=== PATIENT | female | born 1950 | race Caucasian/White ===

== ENCOUNTER 2021-04-08 16:03 | Emergency (ER) | payer MEDICARE ==
[2021-04-08 16:12] VITALS: TEMP 97.8
[2021-04-08] MEDS ORDERED: SODIUM CHLORIDE 0.9% 1,000 ML IV STA (16:21)
--- NOTE | 2021-04-08 16:25 | ED ---
General Adult HPI - General Chief complaint: Syncope Stated complaint: Near syncope Time Seen by Provider: 04/08/21 16:10 Source: patient, EMS, RN notes reviewed Mode of arrival: EMS Limitations: no limitations - History of Present Illness Initial comments: Patient is a pleasant 70-year-old female presenting to the emergency department for a near-syncopal episode. Patient states she was bending over and felt like she is about to pass out when she stood up. Patient states she did feel lightheaded for several minutes following this. Patient no longer has symptoms and is symptom-free. Patient denies ever losing consciousness. No chest pain or dyspnea. Patient denies chest pain despite being questioned on this several times and no defining patient that the nurse Hansen chest pain. Despite this patient still denies any chest discomfort at any time. No weakness or headache or confusion. No abdominal pain. patient takes aspirin daily for her history of atrial fibrillation. Patient states she recently lost her and has not been eating or drinking well. - Related Data Home Medications Medication Instructions Recorded Confirmed Aspirin EC [Ecotrin Low Dose] 81 mg PO HS 04/08/21 04/08/21 Allergies Allergy/AdvReac Type Severity Reaction Status Date / Time No Known Allergies Allergy Verified 04/08/21 18:07 Review of Systems ROS Statement: Those systems with pertinent positive or pertinent negative responses have been documented in the HPI. ROS Other: All systems not noted in ROS Statement are negative. Constitutional: Denies: fever Eyes: Denies: eye pain ENT: Denies: ear pain Respiratory: Denies: cough, dyspnea Cardiovascular: Denies: chest pain, palpitations Endocrine: Denies: fatigue Gastrointestinal: Denies: abdominal pain Genitourinary: Denies: dysuria Musculoskeletal: Denies: back pain Skin: Denies: rash Neurological: Denies: headache, weakness, confusion Past Medical History Additional Past Medical History / Comment(s): prolaplsed valve (since childhood) History of Any Multi-Drug Resistant Organisms: None Reported Past Surgical History: Section Smoking Status: Current some day smoker Past Alcohol Use History: None Reported Past Drug Use History: None Reported General Exam Limitations: no limitations General appearance: alert, in no apparent distress Head exam: Present: atraumatic, normocephalic Eye exam: Present: normal appearance, PERRL, EOMI. Absent: nystagmus ENT exam: Present: normal oropharynx Respiratory exam: Present: normal lung sounds bilaterally Cardiovascular Exam: Present: irregular rhythm Expanded Peripheral pulses: 2+: Radial (R), Radial (L), Posterior Tibialis (R), Posterior Tibialis (L), Dorsalis Pedis (R), Dorsalis Pedis (L) GI/Abdominal exam: Present: soft. Absent: distended, tenderness, pulsatile mass Extremities exam: Present: normal inspection. Absent: pedal edema, calf tenderness Neurological exam: Present: alert, oriented X3, CN II-XII intact. 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 fib with rate of 94. QRS 104. QT 344. QTC 4:30. Normal axis normal QRS. Nonspecific ST-T. Medical Decision Making - Medical Decision Making Patient reevaluated and updated. Patient requests discharge home. Patient has borderline blood pressure and is receptive to receiving Ativan. Patient amiss to feeling anxious or patient states she will follow-up with primary care physician - Lab Data Result diagrams: 04/08/21 17:35 04/08/21 16:31 Lab Results 04/08/21 04/08/21 04/08/21 Range/Units 16:31 16:31 16:31 WBC (3.8-10.6) k/uL RBC (3.80-5.40) m/uL Hgb (11.4-16.0) gm/dL Hct (34.0-46.0) % MCV (80.0-100.0) fL MCH (25.0-35.0) pg MCHC (31.0-37.0) g/dL RDW (11.5-15.5) % Plt Count (150-450) k/uL MPV Neutrophils % % Lymphocytes % % Monocytes % % Eosinophils % % Basophils % % Neutrophils # (1.3-7.7) k/uL Lymphocytes # (1.0-4.8) k/uL Monocytes # (0-1.0) k/uL Eosinophils # (0-0.7) k/uL Basophils # (0-0.2) k/uL Manual Slide Review Large Platelets RBC Morphology PT (9.0-12.0) sec INR (<1.2) APTT (22.0-30.0) sec Sodium 139 (137-145) mmol/L Potassium 5.1 (3.5-5.1) mmol/L Chloride 112 H (98-107) mmol/L Carbon Dioxide 19 L (22-30) mmol/L Anion Gap 8 mmol/L BUN 11 (7-17) mg/dL Creatinine 0.54 (0.52-1.04) mg/dL Est GFR (CKD-EPI)AfAm >90 (>60 ml/min/1.73 sqM) Est GFR (CKD-EPI)NonAf >90 (>60 ml/min/1.73 sqM) Glucose 97 (74-99) mg/dL Calcium 9.4 (8.4-10.2) mg/dL Magnesium 2.2 (1.6-2.3) mg/dL Total Bilirubin 1.0 (0.2-1.3) mg/dL AST 88 H (14-36) U/L ALT 47 H (4-34) U/L Alkaline Phosphatase 72 (38-126) U/L Troponin I 0.015 (0.000-0.034) ng/mL Total Protein 7.2 (6.3-8.2) g/dL Albumin 4.3 (3.5-5.0) g/dL Urine Color Light Yellow Urine Appearance Clear (Clear) Urine pH 5.0 (5.0-8.0) Ur Specific [place] 1.005 (1.001-1.035) Urine Protein Negative (Negative) Urine Glucose (UA) Negative (Negative) Urine Ketones Negative (Negative) Urine Blood Negative (Negative) Urine Nitrite Negative (Negative) Urine Bilirubin Negative (Negative) Urine Urobilinogen <2.0 (<2.0) mg/dL Ur Leukocyte Esterase Negative (Negative) 04/08/21 04/08/21 Range/Units 17:35 17:35 WBC 5.9 (3.8-10.6) k/uL RBC 4.72 (3.80-5.40) m/uL Hgb 14.9 (11.4-16.0) gm/dL Hct 45.8 (34.0-46.0) % MCV 96.9 (80.0-100.0) fL MCH 31.6 (25.0-35.0) pg MCHC 32.6 (31.0-37.0) g/dL RDW 13.7 (11.5-15.5) % Plt Count 139 L (150-450) k/uL MPV 12.2 Neutrophils % 67 % Lymphocytes % 23 % Monocytes % 7 % Eosinophils % 1 % Basophils % 0 % Neutrophils # 3.9 (1.3-7.7) k/uL Lymphocytes # 1.3 (1.0-4.8) k/uL Monocytes # 0.4 (0-1.0) k/uL Eosinophils # 0.1 (0-0.7) k/uL Basophils # 0.0 (0-0.2) k/uL Manual Slide Review Performed Large Platelets Present RBC Morphology Normal PT 11.0 (9.0-12.0) sec INR 1.0 (<1.2) APTT 21.7 L (22.0-30.0) sec Sodium (137-145) mmol/L Potassium (3.5-5.1) mmol/L Chloride (98-107) mmol/L Carbon Dioxide (22-30) mmol/L Anion Gap mmol/L BUN (7-17) mg/dL Creatinine (0.52-1.04) mg/dL Est GFR (CKD-EPI)AfAm (>60 ml/min/1.73 sqM) Est GFR (CKD-EPI)NonAf (>60 ml/min/1.73 sqM) Glucose (74-99) mg/dL Calcium (8.4-10.2) mg/dL Magnesium (1.6-2.3) mg/dL Total Bilirubin (0.2-1.3) mg/dL AST (14-36) U/L ALT (4-34) U/L Alkaline Phosphatase (38-126) U/L Troponin I (0.000-0.034) ng/mL Total Protein (6.3-8.2) g/dL Albumin (3.5-5.0) g/dL Urine Color Urine Appearance (Clear) Urine pH (5.0-8.0) Ur Specific [place] (1.001-1.035) Urine Protein (Negative) Urine Glucose (UA) (Negative) Urine Ketones (Negative) Urine Blood (Negative) Urine Nitrite (Negative) Urine Bilirubin (Negative) Urine Urobilinogen (<2.0) mg/dL Ur Leukocyte Esterase (Negative) Disposition Clinical Impression: Near syncope Disposition: HOME SELF-CARE Condition: Stable Instructions (If sedation given, give patient instructions): Near Syncope (ED), Hypertension (ED) Additional Instructions: Please follow-up with primary care physician in the next day or 2 for recheck. Return for passing out, chest pain or shortness of breath, weakness, uncontrolled blood pressure, worsening symptoms or other concerns. Is patient prescribed a controlled substance at d/c from ED?: No Referrals: Luis Fernando Biswas MD [STAFF PHYSICIAN] - 1-2 days Time of Disposition: 19:39
[2021-04-08 17:00] LABS: ALT 47 U/L (4-34); AST 88 U/L (14-36); African American GFR (CKD) >90 (>60 ml/min/1.73 sqM); Albumin 4.3 g/dL (3.5-5.0); Alkaline Phosphatase 72 U/L (38-126); Anion Gap 8 mmol/L; Blood Urea Nitrogen 11 mg/dL (7-17); Calcium 9.4 mg/dL (8.4-10.2); Carbon Dioxide 19 mmol/L (22-30); Chloride 112 mmol/L (98-107); Glucose 97 mg/dL (74-99); Magnesium 2.2 mg/dL (1.6-2.3); Non-African American GFR(CKD) >90 (>60 ml/min/1.73 sqM); Sodium 139 mmol/L (137-145); Total Protein 7.2 g/dL (6.3-8.2)
[2021-04-08 17:03] LABS: Potassium 5.1 mmol/L (3.5-5.1)
[2021-04-08 17:32] LABS: Appearance,Urine Clear (Clear); Bilirubin,Urine Negative (Negative); Blood,Urine Negative (Negative); Color,Urine Light Yellow; Glucose,Urine (UA) Negative (Negative); Ketones,Urine Negative (Negative); Leukocyte Esterase,Urine Negative (Negative); Nitrite,Urine Negative (Negative); Protein,Urine Negative (Negative); Specific Gravity,Urine 1.005 (1.001-1.035); Urobilinogen,Urine <2.0 mg/dL (<2.0)
--- NOTE | 2021-04-08 17:32 | XR ---
EXAMINATION TYPE: XR chest 2V DATE OF EXAM: 04/08/2021 COMPARISON: NONE HISTORY: Dizziness TECHNIQUE: 2 views FINDINGS: There is no heart failure nor confluent pneumonic infiltrate. Costophrenic angles are clear . There are no hilar masses. Heart is borderline enlarged. Bony thorax is intact. IMPRESSION: No active cardiopulmonary disease.
[2021-04-08 18:15] LABS: Basophils % (A) 0 %; Eosinophils # (A) 0.1 k/uL (0-0.7); Eosinophils % (A) 1 %; HCT 45.8 % (34.0-46.0); HGB 14.9 gm/dL (11.4-16.0); Lymphocytes # (A) 1.3 k/uL (1.0-4.8); Lymphocytes % (A) 23 %; MCH 31.6 pg (25.0-35.0); MCHC 32.6 g/dL (31.0-37.0); MCV 96.9 fL (80.0-100.0); Mean Platelet Volume 12.2; Monocytes # (A) 0.4 k/uL (0-1.0); Monocytes % (A) 7 %; Neutrophils # (A) 3.9 k/uL (1.3-7.7); Neutrophils % (A) 67 %; Platelet Count 139 k/uL (150-450); RBC 4.72 m/uL (3.80-5.40); RDW 13.7 % (11.5-15.5); WBC 5.9 k/uL (3.8-10.6)
[2021-04-08 18:25] LABS: Partial Thromboplastin Time 21.7 sec (22.0-30.0)
[2021-04-08] MEDS ORDERED: LORazepam 1 MG TAB PO STA ×2 (18:34→19:37)
[2021-04-08 18:55] LABS: Large Platelets Present
[2021-04-08 19:57] VITALS: BP 142/93; PULSE 89; RESP 16
== END 2021-04-08 19:57 | disposition home or self-care (01) ==
LOC: EC 16:03
DX: R55 Syncope and collapse (principal); R42 Dizziness and giddiness; F17.200 Nicotine dependence, unspecified, uncomplicated; Z79.82 Long term (current) use of aspirin
CPT/HCPCS: 36415; 71046; 80053; 81003; 83735; 84484; 85025; 85610; 85730; 93005; 99284

== ENCOUNTER 2022-09-09 10:52 | Emergency (ER) | payer MEDICARE ==
[2022-09-09 11:43] LABS: Basophils % (A) 1 %; Eosinophils # (A) 0.1 k/uL (0-0.7); Eosinophils % (A) 1 %; HCT 44.6 % (34.0-46.0); HGB 14.5 gm/dL (11.4-16.0); Lymphocytes # (A) 1.4 k/uL (1.0-4.8); Lymphocytes % (A) 26 %; MCH 30.9 pg (25.0-35.0); MCHC 32.4 g/dL (31.0-37.0); MCV 95.1 fL (80.0-100.0); Mean Platelet Volume 11.3; Monocytes # (A) 0.5 k/uL (0-1.0); Monocytes % (A) 10 %; Neutrophils # (A) 3.2 k/uL (1.3-7.7); Neutrophils % (A) 61 %; Platelet Count 170 k/uL (150-450); RBC 4.69 m/uL (3.80-5.40); WBC 5.2 k/uL (3.8-10.6)
[2022-09-09 12:00] LABS: ALT 29 U/L (4-34); AST 47 U/L (14-36); African American GFR (CKD) >90 (>60 ml/min/1.73 sqM); Albumin 4.1 g/dL (3.5-5.0); Alkaline Phosphatase 91 U/L (38-126); Anion Gap 6 mmol/L; Blood Urea Nitrogen 8 mg/dL (7-17); Calcium 8.8 mg/dL (8.4-10.2); Carbon Dioxide 24 mmol/L (22-30); Chloride 112 mmol/L (98-107); Glucose 101 mg/dL (74-99); Lipase 101 U/L (23-300); Non-African American GFR(CKD) >90 (>60 ml/min/1.73 sqM); Potassium 4.3 mmol/L (3.5-5.1); Sodium 142 mmol/L (137-145); Total Bilirubin 0.7 mg/dL (0.2-1.3); Total Protein 7.1 g/dL (6.3-8.2)
--- NOTE | 2022-09-09 12:46 | XR ---
EXAMINATION TYPE: XR ankle complete RT DATE OF EXAM: 09/09/2022 COMPARISON: NONE HISTORY: Fall, pain TECHNIQUE: Frontal, lateral and oblique images of the right ankle are obtained. COMPARISON: None. FINDINGS: There is no acute fracture/dislocation evident. The joint spaces appear within normal solo its. Mild soft tissue edema of the ankle. Moderate size plantar calcaneal enthesophyte. Kager's fat p ad is intact. IMPRESSION: 1. There is no acute fracture or dislocation seen. 2. Mild soft tissue edema of the ankle.
--- NOTE | 2022-09-09 12:47 | XR ---
EXAMINATION TYPE: PA chest and right rib series, 5 views DATE OF EXAM: 09/09/2022 COMPARISON: 04/08/2021 HISTORY: 72-year-old female pain after fall 2 weeks ago FINDINGS: Heart mildly enlarged. Aorta and pulmonary vasculature within normal limits. Mild interstitial promin ence in the chronic appearance. No consolidation, pneumothorax, or pleural effusion. Subtle step off involving the anterior right sixth and seventh ribs on the oblique views. IMPRESSION: 1. Correlate for point tenderness. Possible subtle fractures of the right anterior sixth and seventh ribs on the oblique views. 2. Mild cardiomegaly and chronic changes. No acute cardiopulmonary process.
--- NOTE | 2022-09-09 13:41 | US ---
EXAMINATION TYPE: US abdomen limited DATE OF EXAM: 09/09/2022 COMPARISON: NONE CLINICAL HISTORY: ruq. Pain. TECHNIQUE: Multiple sonographic images of the right upper quadrant are obtained. FINDINGS: EXAM MEASUREMENTS: Liver Length: 15.0 cm Gallbladder Wall: 0.19 cm CBD: 0.48 cm Right Kidney: 11.3 x 5.4 x 5.7 cm TEACHER OF THE DEAF/HARD OF HEARING NOTES: Exam is very limited due to overlying bowel gas. Pancreas: Obscured Liver: Appears very heterogeneous with increased attenuation. No focal lesion. Gallbladder: Fold seen. No pericholecystic fluid, wall thickening or shadowing calculi. Evidence for sonographic Christianson's sign: No CBD: Portions seen appear wnl Right Kidney: Limited. No hydronephrosis or masses seen . No shadowing calculi. IMPRESSION: 1. Limited examination without evidence for acute process. 2. Heterogenous slightly hyperechoic liver echotexture which is most commonly seen with hepatic stea tosis.
--- NOTE | 2022-09-09 14:10 | ED ---
Abdominal Pain HPI - General Chief Complaint: Abdominal Pain Stated Complaint: Fall 2wks ago,Rib & Ankle Pain Time Seen by Provider: 09/09/22 11:20 Source: patient Mode of arrival: ambulatory Limitations: no limitations - History of Present Illness Initial Comments: 72-year-old female presents to the emergency department with reported right upper quadrant abdominal pain. States that last night she began having some intense right upper quadrant abdominal pain around 3 AM. Denies any provocative or palliative factors. Pain has essentially resolved at this time with a little bit of minimal discomfort. She denies nausea or vomiting. No diarrhea, consultation, black or bloody stools. No changes in her urination. Denies flank pain. No fevers. Does report to some trauma. States that she fell down a full flight of stairs approximately 2 weeks ago. She went into the clinic for evaluation however never had any imaging performed. She denies shortness of breath. No cough. No chest pain. Other alleviating, precipitating modified factors - Related Data Home Medications Medication Instructions Recorded Confirmed No Known Home Medications 09/09/22 09/09/22 Allergies Allergy/AdvReac Type Severity Reaction Status Date / Time No Known Allergies Allergy Verified 09/09/22 11:55 Review of Systems ROS Statement: Those systems with pertinent positive or pertinent negative responses have been documented in the HPI. ROS Other: All systems not noted in ROS Statement are negative. Past Medical History Additional Past Medical History / Comment(s): prolaplsed valve (since childhood) History of Any Multi-Drug Resistant Organisms: None Reported Past Surgical History: Section Smoking Status: Current every day smoker Past Alcohol Use History: None Reported Past Drug Use History: None Reported General Exam Limitations: no limitations General appearance: alert, in no apparent distress Head exam: Present: atraumatic, normocephalic, normal inspection Eye exam: Present: normal appearance, PERRL, EOMI. Absent: scleral icterus, conjunctival injection, periorbital swelling ENT exam: Present: normal exam, mucous membranes moist Neck exam: Present: normal inspection. Absent: tenderness, meningismus, lymphadenopathy Respiratory exam: Present: normal lung sounds bilaterally, chest wall tenderness (right anterior, lower chest wall). Absent: respiratory distress, wheezes, rales, rhonchi, stridor Cardiovascular Exam: Present: regular rate, normal rhythm, normal heart sounds. Absent: systolic murmur, diastolic murmur, rubs, gallop, clicks GI/Abdominal exam: Present: soft, normal bowel sounds. Absent: distended, tenderness, guarding, rebound, rigid Extremities exam: Present: normal inspection, full ROM, normal capillary refill. Absent: tenderness, pedal edema, joint swelling, calf tenderness Back exam: Present: normal inspection Neurological exam: Present: alert, oriented X3, CN II-XII intact Psychiatric exam: Present: normal affect, normal mood Skin exam: Present: warm, dry, intact, normal color. Absent: rash Course Vital Signs 09/09/22 09/09/22 11:13 14:16 Temperature 97.7 F 98.7 F Pulse Rate 54 L 68 Respiratory 18 16 Rate Blood Pressure 153/109 136/96 O2 Sat by Pulse 96 96 Oximetry Medical Decision Making - Medical Decision Making Upon arrival patient was placed into room 20. There are history and physical exam is performed. IV is established and laboratory studies are conducted. Patient essentially pain free at this time. X-ray of the right ribs, right ankle and an ultrasound of the right upper quadrant performed. Return of the results are discussed with the patient. She does have rib fractures on the righ t anterior rib cage of ribs 6 and 7. I did discuss treatment with Motrin and Tylenol. Rest, ice and elevate her ankle. Follow up with her primary care physician or orthopedic surgeon if she has continued right ankle pain. Patient understood and was agreeable. Return for any new or worsening symptoms. Patient was discharged home in stable condition - Lab Data Result diagrams: 09/09/22 11:30 09/09/22 11:30 Lab Results 09/09/22 09/09/22 Range/Units 11:30 11:30 WBC 5.2 (3.8-10.6) k/uL RBC 4.69 (3.80-5.40) m/uL Hgb 14.5 (11.4-16.0) gm/dL Hct 44.6 (34.0-46.0) % MCV 95.1 (80.0-100.0) fL MCH 30.9 (25.0-35.0) pg MCHC 32.4 (31.0-37.0) g/dL RDW 14.0 (11.5-15.5) % Plt Count 170 (150-450) k/uL MPV 11.3 Neutrophils % 61 % Lymphocytes % 26 % Monocytes % 10 % Eosinophils % 1 % Basophils % 1 % Neutrophils # 3.2 (1.3-7.7) k/uL Lymphocytes # 1.4 (1.0-4.8) k/uL Monocytes # 0.5 (0-1.0) k/uL Eosinophils # 0.1 (0-0.7) k/uL Basophils # 0.0 (0-0.2) k/uL Sodium 142 (137-145) mmol/L Potassium 4.3 (3.5-5.1) mmol/L Chloride 112 H (98-107) mmol/L Carbon Dioxide 24 (22-30) mmol/L Anion Gap 6 mmol/L BUN 8 (7-17) mg/dL Creatinine 0.52 (0.52-1.04) mg/dL Est GFR (CKD-EPI)AfAm >90 (>60 ml/min/1.73 sqM) Est GFR (CKD-EPI)NonAf >90 (>60 ml/min/1.73 sqM) Glucose 101 H (74-99) mg/dL Calcium 8.8 (8.4-10.2) mg/dL Total Bilirubin 0.7 (0.2-1.3) mg/dL AST 47 H (14-36) U/L ALT 29 (4-34) U/L Alkaline Phosphatase 91 (38-126) U/L Total Protein 7.1 (6.3-8.2) g/dL Albumin 4.1 (3.5-5.0) g/dL Lipase 101 (23-300) U/L Disposition Clinical Impression: Fall, Rib fractures, RUQ pain Disposition: HOME SELF-CARE Condition: Stable Instructions (If sedation given, give patient instructions): Rib Fracture (ED) Additional Instructions: Take Motrin and Tylenol as needed for pain. Rest, ice and elevate your ankle. If you have continued swelling in a few weeks then you need an MRI. Return for any new or worsening symptoms Is patient prescribed a controlled substance at d/c from ED?: No Referrals: None,Stated [Primary Care Provider] - 1-2 days Tee Soto DO [Doctor of Osteopathic Medicine] - 1-2 days Time of Disposition: 14:09
[2022-09-09 14:24] VITALS: BP 136/96; PULSE 68; RESP 16; TEMP 98.7
== END 2022-09-09 14:24 | disposition home or self-care (01) ==
LOC: EC 10:52
DX: S22.31XA Fracture of one rib, right side, initial encounter for closed fracture (principal); R10.11 Right upper quadrant pain; F17.200 Nicotine dependence, unspecified, uncomplicated; W10.9XXA Fall (on) (from) unspecified stairs and steps, initial encounter
CPT/HCPCS: 36415; 76705; 80053; 83690; 85025; 99284

== ENCOUNTER 2022-12-23 12:33 | Observation (INO) | payer MEDICARE ==
[2022-12-23] MEDS ORDERED: KETOROLAC 15 MG/ML 1 ML VIAL IVP STA (12:39)
[2022-12-23] MEDS ORDERED: SODIUM CHLORIDE 0.9% 1,000 ML IV STA (12:39)
[2022-12-23] MEDS ORDERED: FAMOTIDINE 20 MG/2 ML VIAL IV STA (12:40)
--- NOTE | 2022-12-23 12:45 | ED ---
General Adult HPI - General Stated complaint: Abd pain Time Seen by Provider: 12/23/22 12:35 Source: patient, EMS, RN notes reviewed Mode of arrival: EMS Limitations: no limitations - History of Present Illness Initial comments: Patient is a pleasant 72-year-old female presenting to the emergency department with concerns with right sided flank pain. Onset of symptoms was around an hour ago. Fairly sudden onset. Patient did have some nausea however that near resolved with medication by EMS. EMS also provided 6 of morphine with only mild improvement of symptoms. Patient states discomfort starts right posterior flank and does extend anterior, more lower. No urinary symptoms. No constipation or diarrhea. No history of similar symptoms previously. - Related Data Home Medications Medication Instructions Recorded Confirmed Aspirin EC [Ecotrin Low Dose] 81 mg PO HS 12/23/22 12/23/22 Allergies Allergy/AdvReac Type Severity Reaction Status Date / Time No Known Allergies Allergy Verified 12/23/22 13:10 Review of Systems ROS Statement: Those systems with pertinent positive or pertinent negative responses have been documented in the HPI. ROS Other: All systems not noted in ROS Statement are negative. Constitutional: Denies: fever Eyes: Denies: eye pain ENT: Denies: ear pain Respiratory: Denies: cough Cardiovascular: Denies: chest pain Endocrine: Denies: fatigue Gastrointestinal: Reports: as per HPI, abdominal pain, nausea Genitourinary: Denies: urgency, dysuria, frequency, hematuria Musculoskeletal: Reports: as per HPI Skin: Denies: rash Neurological: Denies: weakness Past Medical History Additional Past Medical History / Comment(s): prolaplsed valve (since childhood) History of Any Multi-Drug Resistant Organisms: None Reported Past Surgical History: Section Smoking Status: Current every day smoker Past Alcohol Use History: None Reported Past Drug Use History: None Reported General Exam Limitations: no limitations General appearance: alert Head exam: Present: normocephalic Eye exam: Present: normal appearance Neck exam: Present: normal inspection Respiratory exam: Present: normal lung sounds bilaterally Cardiovascular Exam: Present: tachycardia Expanded Peripheral pulses: 2+: Dorsalis Pedis (R), Dorsalis Pedis (L) GI/Abdominal exam: Present: soft, tenderness (Moderate tenderness, more right- sided and more lower), normal bowel sounds. Absent: distended, guarding, rebound, rigid, pulsatile mass Extremities exam: Present: normal inspection. Absent: pedal edema, calf tenderness Back exam: Present: CVA tenderness (R) (Just below the right CVA) Neurological exam: Present: alert Psychiatric exam: Present: normal affect, normal mood Skin exam: Present: normal color Course Vital Signs 12/23/22 12/23/22 12/23/22 13:32 15:04 15:58 Pulse Rate 110 H 97 82 Respiratory 16 16 16 Rate Blood Pressure 153/114 162/95 162/112 O2 Sat by Pulse 95 97 97 Oximetry - Reevaluation(s) Reevaluation #1: 12/23/22 13:10 Patient reevaluated and feeling much better. Patient unclear if she has history of atrial fibrillation however states she does have history of valve problem and questionable history of previous rhythm disorder since childhood. Patient states she takes aspirin daily. 12/23/22 16:36 Chemistry still pending. Lab has been called however still pending EKG Findings - EKG Results: EKG: interpreted by ERMD (LVH criteria with repolarization change), normal axis EKG shows: tachycardia, atrial fibrillation Medical Decision Making - Medical Decision Making Was pt. sent in by a medical professional or institution (, PA, SPECIAL SERVICES COORDINATOR, urgent care, hospital, or [facility]...) When possible be specific @ -No Did you speak to anyone other than the patient for history (EMS, parent, family, police, friend...)? What history was obtained from this source @ -No Did you review nursing and triage notes (agree or disagree)? Why? @ -I reviewed and agree with nursing and triage notes Were old charts reviewed (outside hosp., previous admission, EMS record, old EKG, old radiological studies, urgent care reports/EKG's, [facility] records)? Report findings @ -No old charts were reviewed Differential Diagnosis (chest pain, altered mental status, abdominal pain women, abdominal pain men, vaginal bleeding, weakness, fever, dyspnea, syncope, headache, dizziness, GI bleed, back pain, seizure, CVA, palpatations, mental health)? @ -Differential Abdominal Pain Women: Appendicitis, Cholecystitis, diverticulosis, ischemic bowel, pancreatitis, hepa titis, UTI, gastroenteritis, AAA, incarcerated hernia, bowel obstruction, constipation, inflammatory bowel, hepatitis, peptic ulcer disease, splenic infarction, perforated viscus, vulvitis, ovarian torsion, PID, kidney stone, placenta abruption, this is not meant to be an all-inclusive list EKG interpreted by me (3pts min.). @ -As above X-rays interpreted by me (1pt min.). @ -None done CT interpreted by me (1pt min.). @ -Report reviewed U/S interpreted by me (1pt. min.). @ -None done What testing was considered but not performed or refused? (CT, X-rays, U/S, labs)? Why? @ -None What meds were considered but not given or refused? Why? @ -None Did you discuss the management of the patient with other professionals (professionals i.e. Dr., PA, SPECIAL SERVICES COORDINATOR, lab, RT, psych nurse, social science instructor, traffic operator, teacher, gift officer, watch case polisher)? Give summary @ -Case was discussed with Dr. Ramirez, who will admit covering hospital call Was smoking cessation discussed for >3mins.? @ -No Was critical care preformed (if so, how long)? @ -No Were there social determinants of health that impacted care today? How? (Homelessness, low income, unemployed, alcoholism, drug addiction, transportation, low edu. Level, literacy, decrease access to med. care, skilled nursing, rehab)? @ -No Was there de-escalation of care discussed even if they declined (Discuss DNR or withdrawal of care, Hospice)? DNR status @ -No What co-morbidities impacted this encounter? (DM, HTN, Smoking, COPD, CAD, Cancer, CVA, ARF, Chemo, Hep., AIDS, mental health diagnosis, sleep apnea, morbid obesity)? @ -None Was patient admitted / discharged? Hospital course, mention meds given and route, prescriptions, significant lab abnormalities, going to OR and other pertinent info. @ -Patient reevaluated. Patient remains hypertensive despite several medi cations. Patient does have new onset A. fib as now she feels that she did not have a history of this previously. Patient will stay with consult for cardiology regarding both of these. Undiagnosed new problem with uncertain prognosis? @ -No Drug Therapy requiring intensive monitoring for toxicity (Heparin, Nitro, Insulin, Cardizem)? @ -No Were any procedures done? @ -No Diagnosis/symptom? @ -Hypertensive urgency, new-onset A. fib, ureterolithiasis Acute, or Chronic, or Acute on Chronic? @ -Acute, acute, acute Uncomplicated (without systemic symptoms) or Complicated (systemic symptoms)? @ -default Side effects of treatment? @ -No Exacerbation, Progression, or Severe Exacerbation? @ -No Poses a threat to life or bodily function? How? (Chest pain, [place], [place], pneumonia, PE, COPD, DKA, ARF, appy, cholecystitis, CVA, Diverticulitis, Homicidal, Suicidal, threat to staff... and all critical care pts) @ -No - Lab Data Result diagrams: 12/23/22 12:44 Lab Results 12/23/22 12/23/22 12/23/22 Range/Units 12:44 12:44 12:44 WBC 7.0 (3.8-10.6) k/uL RBC 4.65 (3.80-5.40) m/uL Hgb 14.6 (11.4-16.0) gm/dL Hct 43.8 (34.0-46.0) % MCV 94.2 (80.0-100.0) fL MCH 31.4 (25.0-35.0) pg MCHC 33.3 (31.0-37.0) g/dL RDW 14.0 (11.5-15.5) % Plt Count 140 L (150-450) k/uL MPV 11.2 Neutrophils % 65 % Lymphocytes % 25 % Monocytes % 6 % Eosinophils % 2 % Basophils % 0 % Neutrophils # 4.6 (1.3-7.7) k/uL Lymphocytes # 1.7 (1.0-4.8) k/uL Monocytes # 0.4 (0-1.0) k/uL Eosinophils # 0.1 (0-0.7) k/uL Basophils # 0.0 (0-0.2) k/uL PT 10.8 (9.0-12.0) sec INR 1.0 (<1.2) APTT 19.1 L (22.0-30.0) sec Urine Color Yellow Urine Appearance Clear (Clear) Urine pH 5.0 (5.0-8.0) Ur Specific [place] 1.020 (1.001-1.035) Urine Protein Trace H (Negative) Urine Glucose (UA) Negative (Negative) Urine Ketones 1+ H (Negative) Urine Blood Small H (Negative) Urine Nitrite Negative (Negative) Urine Bilirubin Negative (Negative) Urine Urobilinogen <2.0 (<2.0) mg/dL Ur Leukocyte Esterase Negative (Negative) Urine RBC 10 H (0-5) /hpf Urine WBC 2 (0-5) /hpf Ur Squamous Epith Cells 1 (0-4) /hpf Amorphous Sediment Rare H (None) /hpf Urine Bacteria Rare H (None) /hpf Hyaline Casts 38 H (0-2) /lpf Urine Mucus Rare H (None) /hpf Disposition Clinical Impression: New onset a-fib, Hypertensive urgency, Ureterolithiasis Disposition: ADMITTED IP TO THIS HOSP Is patient prescribed a controlled substance at d/c from ED?: No Referrals: None,Stated [Primary Care Provider] - 1-2 days Time of Disposition: 16:35
[2022-12-23 12:58] LABS: Basophils % (A) 0 %; Eosinophils # (A) 0.1 k/uL (0-0.7); Eosinophils % (A) 2 %; HCT 43.8 % (34.0-46.0); HGB 14.6 gm/dL (11.4-16.0); Lymphocytes # (A) 1.7 k/uL (1.0-4.8); Lymphocytes % (A) 25 %; MCH 31.4 pg (25.0-35.0); MCHC 33.3 g/dL (31.0-37.0); MCV 94.2 fL (80.0-100.0); Mean Platelet Volume 11.2; Monocytes # (A) 0.4 k/uL (0-1.0); Monocytes % (A) 6 %; Neutrophils # (A) 4.6 k/uL (1.3-7.7); Neutrophils % (A) 65 %; Platelet Count 140 k/uL (150-450); RBC 4.65 m/uL (3.80-5.40)
--- NOTE | 2022-12-23 13:09 | CT ---
EXAMINATION TYPE: CT abdomen pelvis wo con DATE OF EXAM: 12/23/2022 COMPARISON: None HISTORY: Right flank pain CT DLP: 783 mGycm Examination of the solid and hollow viscera is limited given the lack of contrast. FINDINGS: LUNG BASES: No evidence for nodule. No evidence for infiltrate. There is evidence of cardiomegaly. LIVER/GB: The gallbladder is unremarkable. No space-occupying hepatic lesion. PANCREAS: No pancreatic mass identified. No inflammatory process seen. SPLEEN: No evidence for splenomegaly. No intrasplenic lesions seen. ADRENALS: No adrenal nodules identified. No evidence for thickening. KIDNEYS: No evidence for renal mass. Mild right-sided hydroureteronephrosis secondary to a 3 mm calcu tavo at the right UVJ which has nearly passed into the urinary bladder. No additional calculi seen. BOWEL: Appendix has a normal appearance. No evidence of bowel obstruction. No inflammatory process. Lymph nodes: No evidence for adenopathy greater than 1 cm. Abdominal aorta: Atheromatous changes seen. No evidence for aneurysm. Genital organs: No significant abnormality. Other: No significant abnormality. IMPRESSION: Mild right-sided hydroureteronephrosis secondary to a 3 mm calculus at the right UVJ which has nearly passed into the urinary bladder.
[2022-12-23 13:19] LABS: Prothrombin Time 10.8 sec (9.0-12.0)
[2022-12-23 13:25] LABS: Partial Thromboplastin Time 19.1 sec (22.0-30.0)
[2022-12-23] MEDS ORDERED: METOCLOPRAMIDE 5 MG/ML 2 ML VIAL IVP STA (13:36)
[2022-12-23] MEDS ORDERED: DILTIAZEM 5 MG/ML 5 ML VIAL IVP STA (13:36)
[2022-12-23] MEDS ORDERED: LABETALOL 5 MG/ML VIAL MDV IVP STA (15:08)
[2022-12-23 15:11] LABS: Amorphous Sediment,Urine Rare /hpf; Appearance,Urine Clear (Clear); Bacteria,Urine Rare /hpf; Bilirubin,Urine Negative (Negative); Blood,Urine Small (Negative); Color,Urine Yellow; Glucose,Urine (UA) Negative (Negative); Hyaline Casts,Urine 38 /lpf (0-2); Ketones,Urine 1+ (Negative); Leukocyte Esterase,Urine Negative (Negative); Mucus,Urine Rare /hpf; Nitrite,Urine Negative (Negative); Protein,Urine Trace (Negative); RBC,Urine 10 /hpf (0-5); Squamous Epithelial Cell,Urine 1 /hpf (0-4); Urobilinogen,Urine <2.0 mg/dL (<2.0); WBC,Urine 2 /hpf (0-5)
[2022-12-23] MEDS ORDERED: ONDANSETRON 4 MG/2 ML VIAL IVP STA (15:58)
[2022-12-23] MEDS ORDERED: hydrALAZINE HCL 20 MG/ML 1 ML VIAL IVP PRN (16:38)
[2022-12-23] MEDS ORDERED: ONDANSETRON 4 MG/2 ML VIAL IVP PRN (16:44)
[2022-12-23] MEDS ORDERED: NALOXONE 0.4 MG/ML 1 ML VIAL IV PRN (16:44)
[2022-12-23] MEDS ORDERED: MORPHINE SULFATE 4 MG/ML SYRINGE IV PRN (16:44)
[2022-12-23] MEDS ORDERED: KETOROLAC 15 MG/ML 1 ML VIAL IVP PRN (16:44)
[2022-12-23] MEDS ORDERED: IBUPROFEN 400 MG TAB PO PRN (16:44)
[2022-12-23 16:54] LABS: ALT 29 U/L (4-34); AST 39 U/L (14-36); African American GFR (CKD) >90 (>60 ml/min/1.73 sqM); Albumin 4.2 g/dL (3.5-5.0); Alkaline Phosphatase 79 U/L (38-126); Amylase 46 U/L (30-110); Anion Gap 6 mmol/L; Blood Urea Nitrogen 16 mg/dL (7-17); Calcium 8.7 mg/dL (8.4-10.2); Carbon Dioxide 25 mmol/L (22-30); Chloride 109 mmol/L (98-107); Glucose 128 mg/dL (74-99); Lipase 86 U/L (23-300); Non-African American GFR(CKD) 89 (>60 ml/min/1.73 sqM); Potassium 4.4 mmol/L (3.5-5.1); Sodium 140 mmol/L (137-145); Total Bilirubin 0.6 mg/dL (0.2-1.3); Total Protein 7.2 g/dL (6.3-8.2)
[2022-12-23] MEDS: SODIUM CHLORIDE 0.9% 1,000 ML IV SCH (16:54)
[2022-12-23] MEDS ORDERED: HEPARIN SODIUM 1,000 UN/ML (10ML VL) IV PRN (18:22)
[2022-12-23] MEDS: DILTIAZEM ORAL 30 MG TAB PO SCH ×2 (18:25→21:14)
[2022-12-23] MEDS ORDERED: HEPARIN SOD,PORK IN 0.45% NACL 25,000 UNIT in 0.45% NACL 1 250ML.BAG IV SCH (18:30)
[2022-12-24 01:56] LABS: INR 1.1 (<1.2); Partial Thromboplastin Time 33.7 sec (22.0-30.0); Prothrombin Time 11.2 sec (9.0-12.0)
[2022-12-24 04:18] VITALS: TEMP 97.4
[2022-12-24] MEDS: SODIUM CHLORIDE 0.9% 1,000 ML IV SCH (07:37)
[2022-12-24 07:53] VITALS: BP 139/78; PULSE 67; RESP 16
[2022-12-24] MEDS: DILTIAZEM ORAL 30 MG TAB PO SCH (07:57)
--- NOTE | 2022-12-24 09:07 | P.GSCN ---
History of Present Illness Consult date: 12/24/22 Reason for Consult: Right ureteral calculus Requesting physician: Mirta Ramirez History of present illness: The patient is a 72-year-old white female with no prior history of urolithiasis or UTIs. Yesterday, she experienced acute onset of right flank pain radiating to the right lower quadrant. This was associated with nausea and vomiting. She presented to the ER and was found to be in atrial fibrillation. She is now asymptomatic. Her urine has not being strained, and she does not know if she passed the calculus or not. Review of Systems - Constitutional Denies chills, Denies fever - Gastrointestinal Reports nausea, Reports vomiting - Genitourinary Genitourinary: Reports flank pain, Reports kidney stones, Denies dysuria, Denies hematuria Past Medical History Additional Past Medical History / Comment(s): Prolapsed valve since childhood History of Any Multi-Drug Resistant Organisms: None Reported Past Surgical History: Section Past Anesthesia/Blood Transfusion Reactions: No Reported Reaction Past Psychological History: No Psychological Hx Reported Smoking Status: Current some day smoker Past Alcohol Use History: None Reported Past Drug Use History: None Reported - Past Family History Mother Family Medical History: Myocardial Infarction ([place]) Additional Family Medical History / Comment(s): of heart attack Father Family Medical History: Cancer Additional Family Medical History / Comment(s): of cancer Medications and Allergies Home Medications Medication Instructions Recorded Confirmed Type Aspirin EC [Ecotrin Low Dose] 81 mg PO HS 12/23/22 12/23/22 History Allergies Allergy/AdvReac Type Severity Reaction Status Date / Time No Known Allergies Allergy Verified 12/23/22 13:10 Surgical - Exam Vital Signs Pulse Resp BP Pulse Ox 110 H 16 153/114 95 12/23/22 13:32 12/23/22 13:32 12/23/22 13:32 12/23/22 13:32 - General well developed, well nourished, no distress - ENT no hearing loss, no congestion - Respiratory normal respiratory effort - Abdomen Abdomen: soft, non tender, no guarding, no rigid, no rebound - Psychiatric oriented to time, oriented to person, oriented to place, speech is normal, memory intact Results - Labs 12/23/22 12:44 12/23/22 15:15 Abnormal Lab Results - Last 24 Hours (Table) 12/23/22 12/23/22 12/23/22 Range/Units 12:44 12:44 12:44 Plt Count 140 L (150-450) k/uL APTT 19.1 L (22.0-30.0) sec Chloride (98-107) mmol/L Glucose (74-99) mg/dL AST (14-36) U/L Urine Protein Trace H (Negative) Urine Ketones 1+ H (Negative) Urine Blood Small H (Negative) Urine RBC 10 H (0-5) /hpf Amorphous Sediment Rare H (None) /hpf Urine Bacteria Rare H (None) /hpf Hyaline Casts 38 H (0-2) /lpf Urine Mucus Rare H (None) /hpf 12/23/22 12/24/22 Range/Units 15:15 01:06 Plt Count (150-450) k/uL APTT 33.7 H (22.0-30.0) sec Chloride 109 H (98-107) mmol/L Glucose 128 H (74-99) mg/dL AST 39 H (14-36) U/L Urine Protein (Negative) Urine Ketones (Negative) Urine Blood (Negative) Urine RBC (0-5) /hpf Amorphous Sediment (None) /hpf Urine Bacteria (None) /hpf Hyaline Casts (0-2) /lpf Urine Mucus (None) /hpf Diabetes panel 12/23/22 Range/Units 15:15 Sodium 140 (137-145) mmol/L Potassium 4.4 (3.5-5.1) mmol/L Chloride 109 H (98-107) mmol/L Carbon Dioxide 25 (22-30) mmol/L BUN 16 (7-17) mg/dL Creatinine 0.63 (0.52-1.04) mg/dL Glucose 128 H (74-99) mg/dL Calcium 8.7 (8.4-10.2) mg/dL AST 39 H (14-36) U/L ALT 29 (4-34) U/L Alkaline Phosphatase 79 (38-126) U/L Total Protein 7.2 (6.3-8.2) g/dL Albumin 4.2 (3.5-5.0) g/dL Calcium panel 12/23/22 Range/Units 15:15 Calcium 8.7 (8.4-10.2) mg/dL Albumin 4.2 (3.5-5.0) g/dL Pituitary panel 12/23/22 Range/Units 15:15 Sodium 140 (137-145) mmol/L Potassium 4.4 (3.5-5.1) mmol/L Chloride 109 H (98-107) mmol/L Carbon Dioxide 25 (22-30) mmol/L BUN 16 (7-17) mg/dL Creatinine 0.63 (0.52-1.04) mg/dL Glucose 128 H (74-99) mg/dL Calcium 8.7 (8.4-10.2) mg/dL Adrenal panel 12/23/22 Range/Units 15:15 Sodium 140 (137-145) mmol/L Potassium 4.4 (3.5-5.1) mmol/L Chloride 109 H (98-107) mmol/L Carbon Dioxide 25 (22-30) mmol/L BUN 16 (7-17) mg/dL Creatinine 0.63 (0.52-1.04) mg/dL Glucose 128 H (74-99) mg/dL Calcium 8.7 (8.4-10.2) mg/dL Total Bilirubin 0.6 (0.2-1.3) mg/dL AST 39 H (14-36) U/L ALT 29 (4-34) U/L Alkaline Phosphatase 79 (38-126) U/L Total Protein 7.2 (6.3-8.2) g/dL Albumin 4.2 (3.5-5.0) g/dL - Imaging CT scan - abdomen: report reviewed, image reviewed Assessment and Plan Assessment: CT scan shows mild right hydronephrosis due to a 2-3 mm right distal ureteral calculus at the right ureterovesical junction. The patient is currently asymptomatic and may have passed the calculus. If she has not passed the calculus, there is a very high likelihood that she will pass it. (1) Ureterolithiasis Current Visit: Yes Status: Acute Code(s): N20.1 - CALCULUS OF URETER SNOMED Code(s): 73941412 Plan: I would recommend observation, as the calculus has a very high likelihood of spontaneous passage if it has not already passed. It would be reasonable to add tamsulosin, to increase the likelihood of stone passage, but as stated she may have already passed the calculus. We discussed ureteroscopic removal of the flako culus, which is unlikely to be required and would only be considered if she develops intractable pain. I do not feel that any further evaluation is warranted unless her pain recurs. I did advise her to increase her oral fluid intake in the future to reduce her risk of developing kidney stones in the future. Time with Patient: Greater than 30
[2022-12-24] MEDS ORDERED: METOPROLOL TARTRATE 50 MG TAB PO SCH (09:30)
[2022-12-24] MEDS ORDERED: APIXABAN 5 MG TAB PO SCH (09:30)
[2022-12-24 10:07] LABS: Basophils % (A) 0 %; Eosinophils # (A) 0.1 k/uL (0-0.7); Eosinophils % (A) 1 %; HCT 40.7 % (34.0-46.0); HGB 13.1 gm/dL (11.4-16.0); Lymphocytes # (A) 1.5 k/uL (1.0-4.8); Lymphocytes % (A) 22 %; MCH 30.8 pg (25.0-35.0); MCHC 32.2 g/dL (31.0-37.0); MCV 95.5 fL (80.0-100.0); Mean Platelet Volume 11.7; Monocytes # (A) 0.6 k/uL (0-1.0); Monocytes % (A) 9 %; Neutrophils # (A) 4.6 k/uL (1.3-7.7); Neutrophils % (A) 66 %; RBC 4.27 m/uL (3.80-5.40); RDW 14.1 % (11.5-15.5)
[2022-12-24 10:37] LABS: ALT 24 U/L (4-34); AST 32 U/L (14-36); African American GFR (CKD) >90 (>60 ml/min/1.73 sqM); Albumin 3.5 g/dL (3.5-5.0); Alkaline Phosphatase 65 U/L (38-126); Anion Gap 6 mmol/L; Blood Urea Nitrogen 13 mg/dL (7-17); Calcium 8.4 mg/dL (8.4-10.2); Carbon Dioxide 22 mmol/L (22-30); Chloride 111 mmol/L (98-107); Glucose 98 mg/dL (74-99); Non-African American GFR(CKD) >90 (>60 ml/min/1.73 sqM); Sodium 139 mmol/L (137-145); Total Bilirubin 0.7 mg/dL (0.2-1.3); Total Protein 6.2 g/dL (6.3-8.2)
--- NOTE | 2022-12-24 11:47 | P.CRDCN ---
History of Present Illness Consult date: 12/24/22 Consult reason: hypertension (urgency), atrial fibrillation (New) History of present illness: History of present illness: This is a 72-year-old female with no previous cardiac history, does not follow with a diet aid. She has no significant past medical history. She states she did have a stress test a number of years ago which was normal. We have been asked to evaluate the patient for new onset atrial fibrillation. Patient presented to the emergency center due to right flank pain and nausea. Her initial blood pressure was 153/114 and heart rate was 110. EKG revealed atrial fibrillation and patient was started on Cardizem 5 mg IV push and then oral Cardizem 30 mild grams 3 times daily. She is also status post Trandate 20 mg IV push 1 and IV fluids 1 L. At the time of evaluation, the patient's abdominal pain is resolved. Patient did not have any chest pain or shortness of breath. She did have maybe a little bit of palpitations and fluttering sensation and she has had this happen in the past but nothing that lasted. EKG atrial fibrillation at 122 bpm, telemetry atrial fibrillation rate controlled CAT scan of the abdomen and pelvis revealed mild right hydronephrosis due to a 3 mm calculus in the R UVJ CBC unremarkable. INR 1. Electrolytes normal. BUN 13 creatinine 0.56. Liver function tests normal. TSH 0.3-5 and free T4 1 0.1. Home cardiac medications: None Review Of Systems: At the time of my evaluation: Constitutional: No fever, no chills. No weakness, fatigue or lethargy. EENT: No headache. No dizziness. Lungs: No shortness of breath, cough, no sputum production. No wheezing. Cardiovascular: No chest pain, no lower extremity edema. No palpitations. No paroxysmal nocturnal dyspnea. No orthopnea. No lightheadedness or dizziness. No syncopal episodes. Abdominal: No abdominal pain. No nausea, vomiting. No diarrhea. No constipation. No bloody or tarry stools. Genitourinary: No dysuria.. No urinary retention. Musculoskeletal: No myalgias. No muscle weakness, no frequent falls. No back pain. No neck pain. Integumentary: No wounds. No rash. No unusual bruising. Neurologic: No aphasia. No facial droop. No change in mentation. No head injury. No headache. Physical examination: Gen: This is a 72-year-old female. She is sitting up in bed and appears to be comfortable and in no acute distress. VS: reviewed HEENT: Head is atraumatic, normocephalic. Pupils equal, round. Sclerae is anicteric. NECK: Supple. No JVD. LUNGS: Clear to auscultation. No wheezes or rhonchi. No intercostal retractions. HEART: Irregular rate and rhythm. No murmur. ABDOMEN: Soft No tenderness. EXTREMITIES: No pedal edema. No calf tenderness. NEUROLOGICAL: Patient is awake, alert and oriented x3. Assessment: New-onset atrial fibrillation presenting with RVR, paroxysmal atrial fibrillation Abdominal pain secondary to kidney stone Plan: Discontinue oral Cardizem and start patient on Lopressor 50 mg twice daily and eliquis 5 mg twice daily If rate is controlled this afternoon, patient is cleared for discharge home and can follow up with Dr. Bowden in the office in one to 2 weeks. Thank you kindly for this consultation. Nurse practitioner note has been reviewed, I agree with documented findings and plan of care. Patient was seen and examined. Past Medical History Additional Past Medical History / Comment(s): Prolapsed valve since childhood History of Any Multi-Drug Resistant Organisms: None Reported Past Surgical History: Section Past Anesthesia/Blood Transfusion Reactions: No Reported Reaction Past Psychological History: No Psychological Hx Reported Smoking Status: Current some day smoker Past Alcohol Use History: None Reported Past Drug Use History: None Reported - Past Family History Mother Family Medical History: Myocardial Infarction ([place]) Additional Family Medical History / Comment(s): of heart attack Father Family Medical History: Cancer Additional Family Medical History / Comment(s): of cancer Medications and Allergies Home Medications Medication Instructions Recorded Confirmed Type Aspirin EC [Ecotrin Low Dose] 81 mg PO HS 12/23/22 12/23/22 History Allergies Allergy/AdvReac Type Severity Reaction Status Date / Time No Known Allergies Allergy Verified 12/23/22 13:10 Physical Exam Vitals: Vital Signs Temp Pulse Pulse Resp BP BP Pulse Ox 12/24/22 07:53 67 16 139/78 97 12/24/22 07:51 65 12/24/22 04:00 97.4 F L 65 14 123/78 94 L 12/23/22 23:41 97.8 F 60 14 126/65 93 L 12/23/22 20:00 97.8 F 61 14 154/72 94 L 12/23/22 18:17 78 18 148/91 97 12/23/22 18:07 98.2 F 78 16 143/86 96 12/23/22 17:00 76 16 140/88 95 12/23/22 15:58 82 16 162/112 97 12/23/22 15:04 97 16 162/95 97 12/23/22 13:32 110 H 16 153/114 95 Intake and Output 12/23/22 12/24/22 12/24/22 22:59 06:59 14:59 Intake Total 63.431 Balance 63.431 Intake: Intake, IV Titration 63.431 Amount Heparin Sod,Pork in 0.45% 63.431 NaCl 25,000 unit In 0.45 % NaCl 1 250ml.bag @ 12 UNITS/KG/HR 8.709 mls/hr IV .Q24H [facility] Rx#: [id number] Other: Voiding Method Toilet Toilet # Voids 1 0 Weight 72.575 kg Results 12/24/22 09:33 12/24/22 09:33 Cardiac Enzymes 12/23/22 Range/Units 15:15 AST 39 H (14-36) U/L Coagulation 12/23/22 12/24/22 Range/Units 12:44 01:06 PT 10.8 11.2 (9.0-12.0) sec APTT 19.1 L 33.7 H (22.0-30.0) sec CBC 12/23/22 Range/Units 12:44 WBC 7.0 (3.8-10.6) k/uL RBC 4.65 (3.80-5.40) m/uL Hgb 14.6 (11.4-16.0) gm/dL Hct 43.8 (34.0-46.0) % Plt Count 140 L (150-450) k/uL Comprehensive Metabolic Panel 12/23/22 Range/Units 15:15 Sodium 140 (137-145) mmol/L Potassium 4.4 (3.5-5.1) mmol/L Chloride 109 H (98-107) mmol/L Carbon Dioxide 25 (22-30) mmol/L BUN 16 (7-17) mg/dL Creatinine 0.63 (0.52-1.04) mg/dL Glucose 128 H (74-99) mg/dL Calcium 8.7 (8.4-10.2) mg/dL AST 39 H (14-36) U/L ALT 29 (4-34) U/L Alkaline Phosphatase 79 (38-126) U/L Total Protein 7.2 (6.3-8.2) g/dL Albumin 4.2 (3.5-5.0) g/dL Current Medications Generic Name Dose Route Start Last Admin Trade Name Freq PRN Reason Stop Dose Admin Diltiazem HCl 30 mg 12/23/22 17:00 12/24/22 07:57 Diltiazem Oral 30 Mg Tab PO 30 mg TID RAMONITA Administration Heparin Sodium (Porcine) 0 unit 12/23/22 18:22 Heparin Sodium 1,000 Un/Ml (10ml Vl) IV PER PROTOCOL PRN Low PTT Protocol Hydralazine HCl 20 mg 12/23/22 16:38 Hydralazine Hcl 20 Mg/Ml 1 Ml Vial IVP Q4HR PRN Blood Pressure - High Sodium Chloride 1,000 mls @ 75 mls/hr 12/23/22 16:45 12/24/22 07:37 Saline 0.9% IV Not Given .[id number] RAMONITA Heparin Sodium/Sodium Chloride 250 mls @ 8.709 mls/hr 12/23/22 18:30 12/24/22 02:11 25,000 unit/ Sodium Chloride IV 15 units/kg/hr .Q24H RAMONITA 10.886 mls/hr Titration Protocol 12 UNITS/KG/HR Ibuprofen 400 mg 12/23/22 16:44 Ibuprofen 400 Mg Tab PO Q6HR PRN Mild Pain or Fever > 100.5 Ketorolac Tromethamine 15 mg 12/23/22 16:44 Ketorolac 15 Mg/Ml 1 Ml Vial IVP 12/26/22 16:45 Q6HR PRN Moderate Pain (Scale 4 to 6) Morphine Sulfate 4 mg 12/23/22 16:44 Morphine Sulfate 4 Mg/Ml Syringe IV Q4HR PRN Severe Pain (Scale 7 to 10) Naloxone HCl 0.2 mg 12/23/22 16:44 Naloxone 0.4 Mg/Ml 1 Ml Vial IV Q2M PRN Opioid Reversal Ondansetron HCl 4 mg 12/23/22 16:44 Ondansetron 4 Mg/2 Ml Vial IVP Q8HR PRN Nausea And Vomiting Intake and Output 12/23/22 12/24/22 12/24/22 22:59 06:59 14:59 Intake Total 63.431 Balance 63.431 Intake: Intake, IV Titration 63.431 Amount Heparin Sod,Pork in 0.45% 63.431 NaCl 25,000 unit In 0.45 % NaCl 1 250ml.bag @ 12 UNITS/KG/HR 8.709 mls/hr IV .Q24H [facility] Rx#: [id number] Other: Voiding Method Toilet Toilet # Voids 1 0 Weight 72.575 kg 12/23/22 12:44 12/23/22 15:15
[2022-12-24 12:18] LABS: Platelet Count 129 k/uL (150-450)
--- NOTE | 2022-12-24 12:51 | P.HPIM ---
History of Present Illness H&P Date: 12/24/22 Chief Complaint: Abdominal pain 72-year-old patient no significant cardiac medical history apart from history of mitral valve prolapse since childhood, presented to the emergency department with complaints of abdominal pain. While in ER patient was noted to have new onset atrial fibrillation. Patient was seen by cardiology and placed on rate control medications.Patient presented to the emergency center due to right flank pain and nausea. Her initial blood pressure was 153/114 and heart rate was 110. EKG revealed atrial fibrillation and patient was started on Cardizem 5 mg IV push and then oral Cardizem 30 mild grams 3 times daily. She is also status post Trandate 20 mg IV push 1 and IV fluids 1 L. At the time of evaluation, the patient's abdominal pain is resolved. Patient was evaluated in the medical floor and seen by urology and cardiology and they cleared the patient for discharge home Review of Systems REVIEW OF SYSTEMS: Essentially negative except abdominal pain CONSTITUTIONAL: No fever, no malaise, no fatigue. HEENT: No recent visual problems or hearing problems. Denied any sore throat. CARDIOVASCULAR: No chest pain, orthopnea, PND, no palpitations, no syncope. PULMONARY: No shortness of breath, no cough, no hemoptysis. GASTROINTESTINAL: No diarrhea, no nausea, no vomiting, no abdominal pain. NEUROLOGICAL: No headaches, no weakness, no numbness. HEMATOLOGICAL: Denies any bleeding or petechiae. GENITOURINARY: Denies any burning micturition, frequency, or urgency. MUSCULOSKELETAL/RHEUMATOLOGICAL: Denies any joint pain, swelling, or any muscle pain. ENDOCRINE: Denies any polyuria or polydipsia. Past Medical History Additional Past Medical History / Comment(s): Prolapsed valve since childhood History of Any Multi-Drug Resistant Organisms: None Reported Past Surgical History: Section Past Anesthesia/Blood Transfusion Reactions: No Reported Reaction Past Psychological History: No Psychological Hx Reported Smoking Status: Current some day smoker Past Alcohol Use History: None Reported Past Drug Use History: None Reported - Past Family History Mother Family Medical History: Myocardial Infarction ([place]) Additional Family Medical History / Comment(s): of heart attack Father Family Medical History: Cancer Additional Family Medical History / Comment(s): of cancer Medications and Allergies Home Medications Medication Instructions Recorded Confirmed Type Aspirin EC [Ecotrin Low Dose] 81 mg PO HS 12/23/22 12/23/22 History Allergies Allergy/AdvReac Type Severity Reaction Status Date / Time No Known Allergies Allergy Verified 12/23/22 13:10 Physical Exam Vitals: Vital Signs Temp Pulse Pulse Resp BP BP Pulse Ox 12/24/22 12:27 67 12/24/22 07:53 67 16 139/78 97 12/24/22 07:51 65 12/24/22 04:00 97.4 F L 65 14 123/78 94 L 12/23/22 23:41 97.8 F 60 14 126/65 93 L 12/23/22 20:00 97.8 F 61 14 154/72 94 L 12/23/22 18:17 78 18 148/91 97 12/23/22 18:07 98.2 F 78 16 143/86 96 12/23/22 17:00 76 16 140/88 95 12/23/22 15:58 82 16 162/112 97 12/23/22 15:04 97 16 162/95 97 12/23/22 13:32 110 H 16 153/114 95 Intake and Output 12/23/22 12/24/22 12/24/22 22:59 06:59 14:59 Intake Total 63.431 Balance 63.431 Intake: Intake, IV Titration 63.431 Amount Heparin Sod,Pork in 0.45% 63.431 NaCl 25,000 unit In 0.45 % NaCl 1 250ml.bag @ 12 UNITS/KG/HR 8.709 mls/hr IV .Q24H [facility] [place] Rx#: [id number] Other: Voiding Method Toilet Toilet # Voids 1 0 Weight 72.575 kg Results CBC & Chem 7: 12/24/22 09:33 12/24/22 09:33 Labs: Abnormal Lab Results - Last 24 Hours (Table) 12/23/22 12/23/22 12/23/22 Range/Units 12:44 12:44 12:44 Plt Count 140 L (150-450) k/uL APTT 19.1 L (22.0-30.0) sec Chloride (98-107) mmol/L Glucose (74-99) mg/dL AST (14-36) U/L Total Protein (6.3-8.2) g/dL TSH (0.465-4.680) mIU/L Urine Protein Trace H (Negative) Urine Ketones 1+ H (Negative) Urine Blood Small H (Negative) Urine RBC 10 H (0-5) /hpf Amorphous Sediment Rare H (None) /hpf Urine Bacteria Rare H (None) /hpf Hyaline Casts 38 H (0-2) /lpf Urine Mucus Rare H (None) /hpf 12/23/22 12/24/22 12/24/22 Range/Units 15:15 01:06 09:33 Plt Count (150-450) k/uL APTT 33.7 H (22.0-30.0) sec Chloride 109 H 111 H (98-107) mmol/L Glucose 128 H (74-99) mg/dL AST 39 H (14-36) U/L Total Protein 6.2 L (6.3-8.2) g/dL TSH 0.325 L (0.465-4.680) mIU/L Urine Protein (Negative) Urine Ketones (Negative) Urine Blood (Negative) Urine RBC (0-5) /hpf Amorphous Sediment (None) /hpf Urine Bacteria (None) /hpf Hyaline Casts (0-2) /lpf Urine Mucus (None) /hpf 12/24/22 12/24/22 Range/Units 09:33 09:33 Plt Count 129 L (150-450) k/uL APTT 42.2 H (22.0-30.0) sec Chloride (98-107) mmol/L Glucose (74-99) mg/dL AST (14-36) U/L Total Protein (6.3-8.2) g/dL TSH (0.465-4.680) mIU/L Urine Protein (Negative) Urine Ketones (Negative) Urine Blood (Negative) Urine RBC (0-5) /hpf Amorphous Sediment (None) /hpf Urine Bacteria (None) /hpf Hyaline Casts (0-2) /lpf Urine Mucus (None) /hpf Thrombosis Risk Factor Assmnt - Choose All That Apply Any of the Below Risk Factors Present?: Yes Each Factor Represents 1 point: Obesity (BMI >25) Other Risk Factors: Yes Each Risk Factor Represents 2 Points: Age 61-74 years Other congenital or acquired thrombophilia - If yes, enter type in comment: No Thrombosis Risk Factor Assessment Total Risk Factor Score: 3 Thrombosis Risk Factor Assessment Level: Moderate Risk Assessment and Plan Assessment: Assessment * New onset atrial fibrillation rapid ventricular spot * Right ureter stone 3 mm * Plan * Patient seen by cardiology and urology * Continue anticoagulation with Eliquis, continue metoprolol * Flomax provided for ureter stone * Outpatient follow-up with urology Time with Patient: Less than 30
--- NOTE | 2022-12-24 12:58 | P.DS ---
Providers Date of admission: 12/23/22 16:44 Expected date of discharge: 12/24/22 Attending physician: Mirta Ramirez Consults: 12/23/22 16:44 Consult Physician Urgent Consulting Provider: Delbert Son Consult Reason/Comments: htn urgency, new a fib Do you want consulting provider notified?: Yes 12/23/22 18:22 Consult Physician Routine Consulting Provider: Myron Lo Consult Reason/Comments: Calculi seen on abdomen/pelvis CT Do you want consulting provider notified?: Yes, Notify in am Primary care physician: Stated None Hospital Course: Chief Complaint: Abdominal pain Hospital course 72-year-old patient no significant cardiac medical history apart from history of mitral valve prolapse since childhood, presented to the emergency department with complaints of abdominal pain. While in ER patient was noted to have new onset atrial fibrillation. Patient was seen by cardiology and placed on rate control medications.Patient presented to the emergency center due to right flank pain and nausea. Her initial blood pressure was 153/114 and heart rate was 110. EKG revealed atrial fibrillation and patient was started on Cardizem 5 mg IV push and then oral Cardizem 30 mild grams 3 times daily. She is also status post Trandate 20 mg IV push 1 and IV fluids 1 L. At the time of evaluation, the patient's abdominal pain is resolved. Patient was evaluated in the medical floor and seen by urology and cardiology and they cleared the patient for discharge home PHYSICAL EXAMINATION: Vital reviewed GENERAL: The patient is alert and oriented x3, not in any acute distress. Well developed HEENT: Pupils are round and equally reacting to light. EOMI. No scleral icterus. No conjunctival pallor. Normocephalic, atraumatic. No pharyngeal erythema. CARDIOVASCULAR: S1 and S2 present. No murmurs, Edema not present PULMONARY: Chest is clear to auscultation, no wheezing or Ronchi ABDOMEN: Soft, nontender, nondistended, normoactive bowel sounds. No palpable organomegaly. MUSCULOSKELETAL: No joint swelling or deformity. EXTREMITIES: No cyanosis, clubbing, or pedal edema. NEUROLOGICAL: Gross neurological examination did not reveal any focal deficits. SKIN: No rashes. Assessment * New onset atrial fibrillation rapid ventricular spot * Right ureter stone 3 mm * Plan * Patient seen by cardiology and urology * Continue anticoagulation with Eliquis, continue metoprolol * Flomax provided for ureter stone * Outpatient follow-up with Cardiology Patient Condition at Discharge: Fair Plan - Discharge Summary Discharge Rx Participant: No New Discharge Prescriptions: New Apixaban [Eliquis] 5 mg PO BID 30 Days #60 tab Tamsulosin [Flomax] 0.4 mg PO PC-BRKFST 5 Days #5 cap Metoprolol Tartrate [Lopressor] 50 mg PO BID 30 Days #60 tab Continue Aspirin EC [Ecotrin Low Dose] 81 mg PO HS Discharge Medication List Aspirin EC [Ecotrin Low Dose] 81 mg PO HS 12/23/22 [History] Apixaban [Eliquis] 5 mg PO BID 30 Days #60 tab 12/24/22 [Rx] Metoprolol Tartrate [Lopressor] 50 mg PO BID 30 Days #60 tab 12/24/22 [Rx] Tamsulosin [Flomax] 0.4 mg PO PC-BRKFST 5 Days #5 cap 12/24/22 [Rx] Follow up Appointment(s)/Referral(s): Brittny Bowden MD [STAFF PHYSICIAN] - 1 Week None,Stated [Primary Care Provider] - 1-2 days Activity/Diet/Wound Care/Special Instructions: Follow-up with primary care physician post discharge for management of renal stone Follow-up with cardiology He was started on ELQIUIS which is for stroke prevention in patients with new o nset atrial fibrillation. ELIQUIS can increase risk of bleeding. Discharge Disposition: HOME SELF-CARE
[2022-12-24] MEDS ORDERED: TAMSULOSIN 0.4 MG CAP.ER.24H PO SCH (13:00)
[2022-12-24] MEDS ORDERED: ASPIRIN 81 MG PO SCH (21:00)
== END 2022-12-24 16:28 | disposition home or self-care (01) ==
LOC: EC 12:33 → 3SCARD 16:44 → INTOOBSV 16:44 → 3SCARD 17:24
PROVIDERS: ADMIT Internal Medicine; ATTEND Internal Medicine
DX: I48.91 Unspecified atrial fibrillation (principal); N20.1 Calculus of ureter; I48.0 Paroxysmal atrial fibrillation; I34.1 Nonrheumatic mitral (valve) prolapse; Z98.891 History of uterine scar from previous surgery; F17.200 Nicotine dependence, unspecified, uncomplicated; Z82.49 Family history of ischemic heart disease and other diseases of the circulatory system; Z80.9 Family history of malignant neoplasm, unspecified; Z79.01 Long term (current) use of anticoagulants; Z79.82 Long term (current) use of aspirin; Z79.899 Other long term (current) drug therapy
CPT/HCPCS: 96374; 96375; 99285; 36415; 93005; 84439; 80053 ×2; 84443; 82150; 83690; 85025 ×2; 85610 ×2; 85730 ×2; 81001; 74176; G0378 ×2; J2765; J2405; J1885; J1644